=== PATIENT | male | born 1960 | race Caucasian/White ===

== ENCOUNTER 2023-07-15 14:22 | Inpatient (IN) | payer OTHER ==
[~2023-07-15] VITALS: Ht 180.3 cm; Wt 73.3 kg
[2023-07-15 15:22] LABS: Basophils # (auto) 0.1 10 ^3/uL (0-0.2); Basophils % (auto) 0.6 % (0.0-2.0); Eosinophils # (auto) 0.3 10 ^3/uL (0-0.8); Eosinophils % (auto) 2.7 % (0.0-7.0); Hematocrit 45.7 % (41.0-53.0); Hemoglobin 15.4 g/dL (13.5-17.5); Lymphocytes % (auto) 20.1 % (10.0-50.0); Mean Corpuscular Hemoglobin 29.3 pg (28.0-32.0); Mean Corpuscular Hgb Conc. 33.8 g/dL (32.0-36.0); Mean Corpuscular Volume 86.7 fL (80.0-100.0); Monocytes # (auto) 0.7 10 ^3/uL (0-1.3); Monocytes % (auto) 7.2 % (0.0-12.0); Neutrophils % (auto) 69.4 % (37.0-80.0); Nucleated Red Blood Cells % 0.1 %; Red Blood Cells 5.26 10^6/uL (4.5-5.90); Red Cell Distribution Width 13.1 % (11.8-14.3); White Blood Cell 10.1 10^3/uL (4.4-10.8)
[2023-07-15 15:31] LABS: Alanine Aminotransferase 28 U/L (7-40); Albumin 4.7 g/dL (3.2-4.8); Alkaline Phosphatase 106 U/L (46-116); Anion Gap 5 (5-15); Aspartate Aminotransferase 18 U/L (13-40); BUN/Creatinine Ratio 16.4 (10.0-20.0); Bilirubin, Total 0.4 mg/dL (0.2-1.0); Blood Urea Nitrogen 20 mg/dL (9-23); Calcium 9.8 mg/dL (8.7-10.4); Carbon Dioxide 26 mmol/L (20-30); Chloride 107 mmol/L (98-107); Glucose 84 mg/dL (74-106); Magnesium 2.4 mg/dL (1.6-2.6); Potassium 4.1 mmol/L (3.5-5.1); Sodium 138 mmol/L (136-145)
[2023-07-15 15:32] LABS: Total Protein 7.6 g/dL (5.7-8.2)
[2023-07-15 15:43] LABS: INR 0.98 (0.9-1.15); Partial Thromboplastin Time 30.8 SEC (24.5-34.5); Prothrombin Time 10.3 sec (9.3-11.8)
[2023-07-15 19:20] VITALS: PULSE 90; RESP 18; O2SAT 99
[2023-07-15] MEDS: LABETALOL HCL 5 MG/ML 4ML SYRINGE IV ONE ×2 (19:41→21:10)
[2023-07-15] MEDS: IOHEXOL 350 MG/ML 100ML IJ ONE (20:02)
[2023-07-15 20:24] VITALS: PULSE 78; RESP 18; O2SAT 98
[2023-07-15] MEDS ORDERED: ONDANSETRON HCL 4 MG/2 ML VIAL IV PRN (21:15)
[2023-07-15] MEDS: ATORVASTATIN 20 MG TAB PO SCH (22:04)
[2023-07-15] MEDS: hydrALAZINE HCL 20 MG/ML VL IV PRN (22:13)
[2023-07-15] MEDS: ACETAMINOPHEN 325 MG TAB PO PRN (22:48)
[2023-07-15] MEDS: cloNIDine HCL 0.1 MG TAB PO ONE (23:41)
[2023-07-16] VITALS (9 sets, daily range): BP systolic 143–173; BP diastolic 79–88; PULSE 71–83; RESP 17–20; TEMP 97.7–98.1; O2SAT 96–99
[2023-07-16 06:30] LABS: Chloride 107 mmol/L (98-107); Potassium 3.4 mmol/L (3.5-5.1); Sodium 138 mmol/L (136-145)
[2023-07-16 06:31] LABS: Anion Gap 10 (5-15); Calcium 9.1 mg/dL (8.7-10.4); Carbon Dioxide 21 mmol/L (20-30)
[2023-07-16 06:36] LABS: Blood Urea Nitrogen 13 mg/dL (9-23); Glucose 95 mg/dL (74-106)
[2023-07-16 11:49] LABS: LDL Cholesterol 125 mg/dL (< 100); Triglycerides 86 mg/dL (< 150)
[2023-07-16 11:50] LABS: Cholesterol 178 mg/dL (< 200)
[2023-07-16 11:51] LABS: HDL Cholesterol 49 mg/dL (40-59)
[2023-07-16] MEDS: POTASSIUM EFFERVESENT TAB 25 MEQ PO ONE (11:59)
[2023-07-16] MEDS: ASPirin 81 mg TAB PO SCH (12:00)
[2023-07-16] MEDS: ENOXAPARIN SOD 40 MG/0.4 ML SYRINGE SC SCH (12:01)
[2023-07-16] MEDS: LISINOPRIL 5 MG TAB PO SCH (12:01)
[2023-07-16 12:24] LABS: Folate (Folic Acid) 31.02 ng/mL (>5.38)
[2023-07-16] MEDS: CLOPIDOGREL BISULFATE 75 MG TAB PO ONE (14:50)
[2023-07-16 17:49] LABS: Urine Bacteria None Seen /hpf (None Seen)
[2023-07-16 17:58] LABS: Urine Blood Negative /uL (Negative); Urine Clarity Clear (Clear); Urine Color Light-Yellow (Yellow); Urine Protein, UAD Negative (Negative); Urine Specific Gravity 1.016 (1.001-1.035); Urine Urobilinogen Normal (Negative); Urine WBC 2 /hpf (0 - 3); Urine pH 5.5 (5.0-9.0)
[2023-07-16 18:07] LABS: Amphetamine Screen, Urine Neg (NEGATIVE); Barbiturate Scree,Urine Neg (NEGATIVE); Benzodiazephine Screen, Urine Neg (NEGATIVE); Cannabinoid Screen, Urine Neg (NEGATIVE); Cocaine Screen, Urine Neg (NEGATIVE); Opiate Scree,Urine Neg (NEGATIVE); Phencyclidine Screen, Urine Neg (NEGATIVE)
[2023-07-16] MEDS: ATORVASTATIN 20 MG TAB PO SCH (21:24)
[2023-07-17] VITALS (8 sets, daily range): BP systolic 142–172; BP diastolic 80–93; PULSE 71–89; RESP 15–20; TEMP 97.8–98.3; O2SAT 96–100
[2023-07-17 06:11] LABS: Basophils # (auto) 0.1 10 ^3/uL (0-0.2); Basophils % (auto) 0.7 % (0.0-2.0); Eosinophils # (auto) 0.3 10 ^3/uL (0-0.8); Eosinophils % (auto) 2.8 % (0.0-7.0); Hematocrit 39.4 % (41.0-53.0); Hemoglobin 13.5 g/dL (13.5-17.5); Lymphocytes # (auto) 2.2 10 ^3/uL (0.4-5.4); Lymphocytes % (auto) 24.1 % (10.0-50.0); Mean Corpuscular Hemoglobin 29.6 pg (28.0-32.0); Mean Corpuscular Hgb Conc. 34.2 g/dL (32.0-36.0); Mean Corpuscular Volume 86.6 fL (80.0-100.0); Monocytes # (auto) 0.7 10 ^3/uL (0-1.3); Neutrophils # (auto) 5.9 10 ^3/uL (1.6-8.6); Neutrophils % (auto) 64.4 % (37.0-80.0); Red Blood Cells 4.55 10^6/uL (4.5-5.90); Red Cell Distribution Width 13.3 % (11.8-14.3); White Blood Cell 9.1 10^3/uL (4.4-10.8)
[2023-07-17 06:16] LABS: Chloride 106 mmol/L (98-107); Sodium 136 mmol/L (136-145)
[2023-07-17 06:17] LABS: Anion Gap 6 (5-15); Calcium 9.1 mg/dL (8.7-10.4); Carbon Dioxide 24 mmol/L (20-30)
[2023-07-17 06:22] LABS: BUN/Creatinine Ratio 16.1 (10.0-20.0); Blood Urea Nitrogen 19 mg/dL (9-23); Glucose 91 mg/dL (74-106)
[2023-07-17 06:23] LABS: Magnesium 2.2 mg/dL (1.6-2.6)
[2023-07-17] MEDS ORDERED: amLODIPine BESYLATE 5 MG TAB PO ONE (09:15)
[2023-07-17] MEDS: ASPirin 81 mg TAB PO SCH (09:31)
[2023-07-17] MEDS: CLOPIDOGREL BISULFATE 75 MG TAB PO SCH (09:32)
[2023-07-17] MEDS: amLODIPine BESYLATE 5 MG TAB PO SCH (09:32)
[2023-07-17] MEDS ORDERED: ATOR20TA50 PO (11:05)
[2023-07-17] MEDS ORDERED: LISI-275 PO (11:05)
[2023-07-17] MEDS ORDERED: ASPI-325 PO (11:05)
[2023-07-17] MEDS ORDERED: AML5T PO (11:05)
[2023-07-17] MEDS ORDERED: CLOP75TA70 PO (11:05)
== END 2023-07-17 19:13 | disposition home or self-care (01) | DRG 69 ==
LOC: ER 14:22 → OVERFLOW 21:13 → WEST WING 07-16 01:45
PROVIDERS: ADMIT Internal Medicine Pulmonary Disease; ATTEND Internal Medicine Pulmonary Disease
DX: G45.9 Transient cerebral ischemic attack, unspecified (principal); I16.0 Hypertensive urgency; I10 Essential (primary) hypertension; G47.10 Hypersomnia, unspecified; J45.909 Unspecified asthma, uncomplicated; F17.200 Nicotine dependence, unspecified, uncomplicated; Z79.82 Long term (current) use of aspirin; Z79.899 Other long term (current) drug therapy; Z88.0 Allergy status to penicillin
CPT/HCPCS: 36415; 70450; 70496; 70551; 71045; 80048; 80053; 80061; 80307; 81001; 82607; 82746; 82962; 83735; 83880; 84443; 84484; 85025; 85610; 85730; 93005; 93306; 96374; 96376; 99291; G0378; J3490